=== PATIENT | male | born 1980 | race Caucasian/White ===

== ENCOUNTER 2022-10-09 11:30 | Emergency (ER) | payer OTHER, SELFPAY ==
--- NOTE | ~2022-10-09 | XR_ITS ---
EXAMINATION: XR CHEST CLINICAL INFORMATION: Reason for Exam rt side COMPARISON: Chest radiograph 02/20/2018 TECHNIQUE: 2 views of the chest FINDINGS: Clear lungs. No pneumothorax or pleural effusion. Normal cardiomediastinal silhouette. XR/XR chest 2V IMPRESSION: * Clear lungs.
--- NOTE | ~2022-10-09 | XR_ITS ---
EXAMINATION: XR SHOULDER, RIGHT CLINICAL INFORMATION: Reason for Exam trauma COMPARISON: None TECHNIQUE: Three views of the shoulder. FINDINGS: No acute fracture or dislocation. Joint spaces are maintained without significant degenerative change. Soft tissues are unremarkable. XR/XR shoulder RT min 2V IMPRESSION: * No acute osseous abnormality.
[2022-10-09 12:05] VITALS: BP 151/113; PULSE 102; RESP 18; TEMP 36.6; O2SAT 98; BMI 32.3
--- NOTE | 2022-10-09 12:05 | ED_ITS ---
HPI - Extremity Injury (Upper) General Chief Complaint: General Medical <Pastora Jansen NP - Last Filed: 10/09/22 12:07> Stated Complaint: r shoulder pain down to groin area <Pastora Jansen NP - Last Filed: 10/09/22 12:07> Time Seen by Provider: 10/09/22 12:30 <Pastora Jansen NP - Last Filed: 10/09/22 12:07> Source: patient <Josue Zacarias MD - Last Filed: 10/09/22 15:32> Mode of arrival: ambulatory <Josue Zacarias MD - Last Filed: 10/09/22 15:32> Limitations: no limitations <Josue Zacarias MD - Last Filed: 10/09/22 15:32> History of Present Illness HPI narrative: This is a 42 years old male presented to the emergency department with a chief complaint of right shoulder pain since yesterday, the pain is worse with the right shoulder movement <Josue Zacarias MD - Last Filed: 10/09/22 15:32> complaint: injury to: right and shoulder <Josue Zacarias MD - Last Filed: 10/09/22 15:32> Onset (ago): day(s) (1) <Josue Zacarias MD - Last Filed: 10/09/22 15:32> Other Extremity Injury: right: forearm <Josue Zacarias MD - Last Filed: 10/09/22 15:32> Other injuries: none <Josue Zacarias MD - Last Filed: 10/09/22 15:32> Severity: moderate <Josue Zacarias MD - Last Filed: 10/09/22 15:32> Relieving factors: none <Josue Zacarias MD - Last Filed: 10/09/22 15:32> Exacerbating factors: none <Josue Zacarias MD - Last Filed: 10/09/22 15:32> Related Data Home Medications: Previous Rx's Medication Instructions Recorded naproxen 500 mg tablet (Naprosyn) 500 mg PO BID PRN PAIN #20 tabs 10/09/22 <Pastora Jansen NP - Last Filed: 10/09/22 12:07> Allergies/Adverse Reactions: Allergies Allergy/AdvReac Type Severity Reaction Status Date / Time No Known Allergies Allergy Unverified 05/08/20 15:42 <Pastora Jansen NP - Last Filed: 10/09/22 12:07> Review of Systems Constitutional: Constitutional: Reports no additional constitutional complaints <Josue Zacarias MD - Last Filed: 10/09/22 15:32> ENT: Reports system reviewed and no additional complaints, except as documented <Josue Zacarias MD - Last Filed: 10/09/22 15:32> Respiratory: Respiratory: Reports no additional respiratory complaints <Josue Zacarias MD - Last Filed: 10/09/22 15:32> [facility] Past Medical History Attestation statement: The following information was validated with the patient. <Josue Zacarias MD - Last Filed: 10/09/22 15:32> [facility] Narrative: Opioid use disorder <Josue Zacarias MD - Last Filed: 10/09/22 15:32> Social History Social History: Social History Advance Directives: No Advance Directives Information Provided: No <Pastora Jansen NP - Last Filed: 10/09/22 12:07> Physical Exam Vital Signs: Vital Signs: Last Vital Signs Temp 98 F 10/09/22 12:05 Pulse 102 H 10/09/22 12:05 Resp 10/09/22 12:05 BP 151/113 H 10/09/22 12:05 Pulse Ox 98 10/09/22 12:05 O2 Del Method 10/09/22 12:05 BMI result Body Mass Index 32.3 <Pastora Jansen NP - Last Filed: 10/09/22 12:07> Vital Signs: Last Vital Signs Temp 98 F 10/09/22 12:05 Pulse 102 H 10/09/22 12:05 Resp 18 10/09/22 12:05 BP 151/113 H 10/09/22 12:05 Pulse Ox 98 10/09/22 12:05 O2 Del Method 10/09/22 12:05 BMI result Body Mass Index 32.3 <Josue Zacarias MD - Last Filed: 10/09/22 15:32> Const: General: cooperative <Josue Zacarias MD - Last Filed: 10/09/22 15:32> Nutritional Appearance: average body habitus <Josue Zacarias MD - Last Filed: 10/09/22 15:32> Orientation/consciousness: patient oriented x3 <Josue Zacarias MD - Last Filed: 10/09/22 15:32> Limitations: no limitations <Josue Zacarias MD - Last Filed: 10/09/22 15:32> HEENT: Head: Yes normal to inspection <Josue Zacarias MD - Last Filed: 10/09/22 15:32> General nose exam: Normal external nose present <Josue Zacarias MD - Last Filed: 10/09/22 15:32> Face and sinus: Yes normal facial exam <Josue Zacarias MD - Last Filed: 10/09/22 15:32> Mouth: Normal oral and palatal mucosa present <Josue Zacarias MD - Last Filed: 10/09/22 15:32> Throat: Yes posterior oropharynx normal <Josue Zacarias MD - Last Filed: 10/09/22 15:32> Neck: Neck: Yes normal visual inspection, Yes full ROM and Yes no lymphadenopathy <Josue Zacarias MD - Last Filed: 10/09/22 15:32> Chest: Chest palpation & inspection: normal inspection of the chest <Josue Zacarias MD - Last Filed: 10/09/22 15:32> Resp: Effort & Inspection: normal respiratory effort <MD Sahara Briscoe Last Filed: 10/09/22 15:32> Auscultation: clear to auscultation bilaterally <MD Sahara Briscoe Last Filed: 10/09/22 15:32> Cardio: Jugular venous distension: no JVD <Josue Zacarias MD - Last Filed: 10/09/22 15:32> Rate: regular rate <MD Sahara Briscoe Last Filed: 10/09/22 15:32> Rhythm: regular rhythm <MD Sahara Briscoe Last Filed: 10/09/22 15:32> GI: Inspection: Yes normal to inspection <Josue Zacarias MD - Last Filed: 10/09/22 15:32> Palpation (GI): Soft to palpation, nontender and no guarding <Josue Zacarias MD - Last Filed: 10/09/22 15:32> Auscultation: normal bowel sounds <Josue Zacarias MD - Last Filed: 10/09/22 15:32> Neuro: General: patient oriented x3 <Josue Zacarias MD - Last Filed: 10/09/22 15:32> Extrem: Other: There is tenderness in the right shoulder with limited range of motion <Josue Zacarias MD - Last Filed: 10/09/22 15:32> Course Course Course Narrative: This is a rapid medical exam. Deferred additional HPI, ROS, PE to primary provider. 42 yo male with no known medical problems here with complaints of right shoulder pain which radiates down right chest and right abdomen since yesterday. No cough, vomiting, fever, SOB, urinary symptoms. NO known injury or trauma. Will obtain labs, UA, EKG, covid testing. VSS <Pastora Jansen NP - Last Filed: 10/09/22 12:07> Reevaluation(s) Reevaluation #1: feels better ,w/u negative will d/c home <Josue Zacarias MD - Last Filed: 10/09/22 15:32> Time: 14:06 <Josue Zacarias MD - Last Filed: 10/09/22 15:32> Medications Administered Discontinued Medications Generic Name Dose Route Start Last Admin Trade Name Freq PRN Reason Stop Dose Admin Acetaminophen 975 mg 10/09/22 13:10 10/09/22 13:25 Acetaminophen 325 Mg Tablet PO 10/09/22 13:11 975 mg ONCE ONE Administration Ketorolac Tromethamine 60 mg 10/09/22 13:07 10/09/22 13:26 Ketorolac Tromethamine 60 Mg/2 Ml Vial IM 10/09/22 13:08 60 mg ONCE ONE Administration <Pastora Jansen NP - Last Filed: 10/09/22 12:07> Medications Administered Discontinued Medications Generic Name Dose Route Start Last Admin Trade Name Freq PRN Reason Stop Dose Admin Acetaminophen 975 mg 10/09/22 13:10 10/09/22 13:25 Acetaminophen 325 Mg Tablet PO 10/09/22 13:11 975 mg ONCE ONE Administration Ketorolac Tromethamine 60 mg 10/09/22 13:07 10/09/22 13:26 Ketorolac Tromethamine 60 Mg/2 Ml Vial IM 10/09/22 13:08 60 mg ONCE ONE Administration <Josue Zacarias MD - Last Filed: 10/09/22 15:32> Medical Decision Making Medical Decision Making [facility] Narrative: Patient presented with right shoulder pain, can reproduce the pain with the movement of the shoulder 2:06 PM reexamined feeels better,xr shoulder and cxr negative tropi EKGnl will d/c home <Josue Zacarias MD - Last Filed: 10/09/22 15:32> Differential Diagnosis Differential Diagnoses: The differential diagnosis associated with the presentation includes <Josue Zacarias MD - Last Filed: 10/09/22 15:32> Shoulder dislocation/ DJD of the shoulder/ ACS <Josue Zacarias MD - Last Filed: 10/09/22 15:32> Lab Data [facility] Lab Attestation statement: I reviewed the patient's lab results. <Josue Zacarias MD - Last Filed: 10/09/22 15:32> Result Diagrams: 10/09/22 12:53 10/09/22 12:53 <Pastora Jansen NP - Last Filed: 10/09/22 12:07> Labs: Lab Results 10/09/22 10/09/22 10/09/22 Range/Units 12:36 12:53 12:53 WBC 10.2 (4.8-10.8) X10*3/uL RBC 4.76 (4.60-5.80) X10*6/uL Hgb 16.0 (14.0-18.0) g/dl Hct 45.5 (42.0-52.0) % MCV 95.6 (80.0-98.0) fL MCH 33.6 H (27.0-33.0) pg MCHC 35.2 (31.0-36.0) g/dl RDW 14.0 (11.0-16.0) % Plt Count 86 L (160-400) X10*3/uL MPV 11.5 (9.4-12.4) fL Immature Gran % (Auto) 0.3 (0.0-0.4) % Neut % (Auto) 73.7 H (45-73) % Lymph % (Auto) 17.8 L (20-40) % Summers % (Auto) 7.4 (2-11) % Eos % (Auto) 0.4 (0-4) % Baso % (Auto) 0.4 (0-2) % Lymph # (Auto) 1.8 (1.2-4.9) X10*3/uL Summers # (Auto) 0.8 (0.1-1.2) X10*3/uL Eos # (Auto) 0.0 (0.0-0.4) X10*3/uL Baso # (Auto) 0.0 (0.0-0.2) X10*3/uL Abs Immat Gran (auto) 0.03 (0.00-0.03) X10*3/uL Absolute Neuts (auto) 7.5 (2.0-8.3) x10*3/uL Absolute Nucleated RBC 0.000 (0.0-0.012) X10*3/uL Nucleated RBC % (auto) 0.0 (0.0-0.2) /100WBC Sodium 139 (135-145) mmol/L Potassium 4.4 (3.3-5.1) mmol/L Chloride 105 (96-108) mmol/L Carbon Dioxide 23 (22-29) mmol/L Anion Gap 15 (12-20) BUN 10 (9-16) mg/dL Creatinine 0.86 (0.5-1.4) mg/dL Estim Creat Clear Calc 115.6 Estimated GFR > 60 Random Glucose 130 H (60-115) mg/dL Calcium 9.3 (8.4-10.2) mg/dL Magnesium 1.9 (1.6-2.6) mg/dL Total Bilirubin 2.3 H (0.0-1.0) mg/dL Direct Bilirubin 1.0 H (0.0-0.5) mg/dL AST 110 H (5-37) U/L ALT 75 H (0-40) U/L Alkaline Phosphatase 159 H (39-117) U/L Troponin I High Sens (<3.5-35.0) ng/L Total Protein 8.1 H (6.5-8.0) g/dL Albumin 3.8 (3.5-5.0) g/dL COVID-19 (NEYDA) Negative (Negative) COVID-19 Clin Com See Note 10/09/22 Range/Units 12:53 WBC (4.8-10.8) X10*3/uL RBC (4.60-5.80) X10*6/uL Hgb (14.0-18.0) g/dl Hct (42.0-52.0) % MCV (80.0-98.0) fL MCH (27.0-33.0) pg MCHC (31.0-36.0) g/dl RDW (11.0-16.0) % Plt Count (160-400) X10*3/uL MPV (9.4-12.4) fL Immature Gran % (Auto) (0.0-0.4) % Neut % (Auto) (45-73) % Lymph % (Auto) (20-40) % Summers % (Auto) (2-11) % Eos % (Auto) (0-4) % Baso % (Auto) (0-2) % Lymph # (Auto) (1.2-4.9) X10*3/uL Summers # (Auto) (0.1-1.2) X10*3/uL Eos # (Auto) (0.0-0.4) X10*3/uL Baso # (Auto) (0.0-0.2) X10*3/uL Abs Immat Gran (auto) (0.00-0.03) X10*3/uL Absolute Neuts (auto) (2.0-8.3) x10*3/uL Absolute Nucleated RBC (0.0-0.012) X10*3/uL Nucleated RBC % (auto) (0.0-0.2) /100WBC Sodium (135-145) mmol/L Potassium (3.3-5.1) mmol/L Chloride (96-108) mmol/L Carbon Dioxide (22-29) mmol/L Anion Gap (12-20) BUN (9-16) mg/dL Creatinine (0.5-1.4) mg/dL Estim Creat Clear Calc Estimated GFR Random Glucose (60-115) mg/dL Calcium (8.4-10.2) mg/dL Magnesium (1.6-2.6) mg/dL Total Bilirubin (0.0-1.0) mg/dL Direct Bilirubin (0.0-0.5) mg/dL AST (5-37) U/L ALT (0-40) U/L Alkaline Phosphatase (39-117) U/L Troponin I High Sens < 3.5 (<3.5-35.0) ng/L Total Protein (6.5-8.0) g/dL Albumin (3.5-5.0) g/dL COVID-19 (NEYDA) (Negative) COVID-19 Clin Com <Pastora Jansen, SHAFT TENDER - Last Filed: 10/09/22 12:07> Lab Results 10/09/22 10/09/22 10/09/22 Range/Units 12:36 12:53 12:53 WBC 10.2 (4.8-10.8) X10*3/uL RBC 4.76 (4.60-5.80) X10*6/uL Hgb 16.0 (14.0-18.0) g/dl Hct 45.5 (42.0-52.0) % MCV 95.6 (80.0-98.0) fL MCH 33.6 H (27.0-33.0) pg MCHC 35.2 (31.0-36.0) g/dl RDW 14.0 (11.0-16.0) % Plt Count 86 L (160-400) X10*3/uL MPV 11.5 (9.4-12.4) fL Immature Gran % (Auto) 0.3 (0.0-0.4) % Neut % (Auto) 73.7 H (45-73) % Lymph % (Auto) 17.8 L (20-40) % Summers % (Auto) 7.4 (2-11) % Eos % (Auto) 0.4 (0-4) % Baso % (Auto) 0.4 (0-2) % Lymph # (Auto) 1.8 (1.2-4.9) X10*3/uL Summers # (Auto) 0.8 (0.1-1.2) X10*3/uL Eos # (Auto) 0.0 (0.0-0.4) X10*3/uL Baso # (Auto) 0.0 (0.0-0.2) X10*3/uL Abs Immat Gran (auto) 0.03 (0.00-0.03) X10*3/uL Absolute Neuts (auto) 7.5 (2.0-8.3) x10*3/uL Absolute Nucleated RBC 0.000 (0.0-0.012) X10*3/uL Nucleated RBC % (auto) 0.0 (0.0-0.2) /100WBC Sodium 139 (135-145) mmol/L Potassium 4.4 (3.3-5.1) mmol/L Chloride 105 (96-108) mmol/L Carbon Dioxide 23 (22-29) mmol/L Anion Gap 15 (12-20) BUN 10 (9-16) mg/dL Creatinine 0.86 (0.5-1.4) mg/dL Estim Creat Clear Calc 115.6 Estimated GFR > 60 Random Glucose 130 H (60-115) mg/dL Calcium 9.3 (8.4-10.2) mg/dL Magnesium 1.9 (1.6-2.6) mg/dL Total Bilirubin 2.3 H (0.0-1.0) mg/dL Direct Bilirubin 1.0 H (0.0-0.5) mg/dL AST 110 H (5-37) U/L ALT 75 H (0-40) U/L Alkaline Phosphatase 159 H (39-117) U/L Troponin I High Sens (<3.5-35.0) ng/L Total Protein 8.1 H (6.5-8.0) g/dL Albumin 3.8 (3.5-5.0) g/dL COVID-19 (NEYDA) Negative (Negative) COVID-19 Clin Com See Note 10/09/22 Range/Units 12:53 WBC (4.8-10.8) X10*3/uL RBC (4.60-5.80) X10*6/uL Hgb (14.0-18.0) g/dl Hct (42.0-52.0) % MCV (80.0-98.0) fL MCH (27.0-33.0) pg MCHC (31.0-36.0) g/dl RDW (11.0-16.0) % Plt Count (160-400) X10*3/uL MPV (9.4-12.4) fL Immature Gran % (Auto) (0.0-0.4) % Neut % (Auto) (45-73) % Lymph % (Auto) (20-40) % Summers % (Auto) (2-11) % Eos % (Auto) (0-4) % Baso % (Auto) (0-2) % Lymph # (Auto) (1.2-4.9) X10*3/uL Summers # (Auto) (0.1-1.2) X10*3/uL Eos # (Auto) (0.0-0.4) X10*3/uL Baso # (Auto) (0.0-0.2) X10*3/uL Abs Immat Gran (auto) (0.00-0.03) X10*3/uL Absolute Neuts (auto) (2.0-8.3) x10*3/uL Absolute Nucleated RBC (0.0-0.012) X10*3/uL Nucleated RBC % (auto) (0.0-0.2) /100WBC Sodium (135-145) mmol/L Potassium (3.3-5.1) mmol/L Chloride (96-108) mmol/L Carbon Dioxide (22-29) mmol/L Anion Gap (12-20) BUN (9-16) mg/dL Creatinine (0.5-1.4) mg/dL Estim Creat Clear Calc Estimated GFR Random Glucose (60-115) mg/dL Calcium (8.4-10.2) mg/dL Magnesium (1.6-2.6) mg/dL Total Bilirubin (0.0-1.0) mg/dL Direct Bilirubin (0.0-0.5) mg/dL AST (5-37) U/L ALT (0-40) U/L Alkaline Phosphatase (39-117) U/L Troponin I High Sens < 3.5 (<3.5-35.0) ng/L Total Protein (6.5-8.0) g/dL Albumin (3.5-5.0) g/dL COVID-19 (NEYDA) (Negative) COVID-19 Clin Com <Josue Zacarias MD - Last Filed: 10/09/22 15:32> Independent Interpretation I performed an independent interpretation of an: EKG (Normal sinus rhythm no ST-T changes) <Josue Zacarias MD - Last Filed: 10/09/22 15:32> Radiology Impression Discussion of test interpretation with radiology: I have reviewed the radiologist's reading. <Josue Zacarias MD - Last Filed: 10/09/22 15:32> Radiologist Impression: negative <Josue Zacarias MD - Last Filed: 10/09/22 15:32> Discharge Plan Discharge Clinical Impression: Shoulder pain, right <Pastora Jansen NP - Last Filed: 10/09/22 12:07> Patient Disposition: Home, Self-Care <Pastora Jansen NP - Last Filed: 10/09/22 12:07> Instructions: Shoulder Pain (ED) <Pastora Jansen NP - Last Filed: 10/09/22 12:07> Additional Instructions: Follow-up with the orthopedist, take anti-inflammatory as directed,we called prescription for you [facility] <Pastora Jansen NP - Last Filed: 10/09/22 12:07> Prescriptions: New naproxen [Naprosyn] 500 mg tablet 500 mg PO BID PRN (Reason: PAIN) Qty: 20 0RF <Pastora Jansen NP - Last Filed: 10/09/22 12:07> Referrals: Philippe Da Silva MD [Physician] - 10/12/22 <Pastora Jansen NP - Last Filed: 10/09/22 12:07> Interventions: ED Discharge Assessment Last Done: 10/09/22 15:05 <Pastora Jansen NP - Last Filed: 10/09/22 12:07> Discharge Date/Time: 10/09/22 15:07 <Pastora Jansen NP - Last Filed: 10/09/22 12:07>
--- NOTE | 2022-10-09 12:07 | ECG_ITS ---
Test Reason : SOB Blood Pressure : / mmHG Vent. Rate : 087 BPM Atrial Rate : 087 BPM P-R Int : 136 ms QRS Dur : 080 ms QT Int : 370 ms P-R-T Axes : 052 056 031 degrees QTc Int : 445 ms Normal sinus rhythm Normal ECG When compared with ECG of 26-AUG-2017 09:15, QT has lengthened Referred By: Pastora Jansen Electronically Signed By:Viraj Aguilar
[2022-10-09 12:59] LABS: COVID-19 Test Negative (Negative); IDNOW Serial# 08D9AD1C
[2022-10-09 13:00] LABS: Mean Corpuscular Volume 95.6 fL (80.0-98.0); PLT CLUMP 1; SCAN SMEAR FLAG 1
[2022-10-09 13:02] LABS: Basophils Percent Auto 0.4 % (0-2); Eosinophils Percent Auto 0.4 % (0-4); Hematocrit 45.5 % (42.0-52.0); Imm Gran Abs Auto 0.03 X10*3/uL (0.00-0.03); Imm Gran Pct Auto 0.3 % (0.0-0.4); Lymphocytes Absolute Auto 1.8 X10*3/uL (1.2-4.9); Lymphocytes Percent Auto 17.8 % (20-40); Mean Corpuscular HGB Conc 35.2 g/dl (31.0-36.0); Mean Corpuscular Hemoglobin 33.6 pg (27.0-33.0); Mean Platelet Volume 11.5 fL (9.4-12.4); Monocytes Absolute Auto 0.8 X10*3/uL (0.1-1.2); Monocytes Percent Auto 7.4 % (2-11); Neutrophils Absolute Auto 7.5 x10*3/uL (2.0-8.3); Neutrophils Percent Auto 73.7 % (45-73); Red Blood Count 4.76 X10*6/uL (4.60-5.80)
[2022-10-09 13:18] LABS: White Blood Count 10.2 X10*3/uL (4.8-10.8)
[2022-10-09 13:20] LABS: MANUAL DIFF FLAG NO
[2022-10-09 13:22] LABS: Platelet Count 86 X10*3/uL (160-400)
[2022-10-09 13:24] LABS: Alanine Aminotransferase 75 U/L (0-40); Albumin Level 3.8 g/dL (3.5-5.0); Alkaline Phosphatase 159 U/L (39-117); Anion Gap 15 (12-20); Aspartate Amino Transferase 110 U/L (5-37); Bilirubin Total 2.3 mg/dL (0.0-1.0); Blood Urea Nitrogen 10 mg/dL (9-16); Calcium 9.3 mg/dL (8.4-10.2); Carbon Dioxide 23 mmol/L (22-29); Chloride 105 mmol/L (96-108); Creatinine Clr Calc Pharmacy 115.6; Estimated Glomerular Filt Rate > 60; Glucose Random 130 mg/dL (60-115); Magnesium 1.9 mg/dL (1.6-2.6); Potassium 4.4 mmol/L (3.3-5.1); Sodium 139 mmol/L (135-145); Total Protein 8.1 g/dL (6.5-8.0)
[2022-10-09] MEDS: Acetaminophen 325 MG TABLET 975 MG PO (13:25)
[2022-10-09] MEDS: Ketorolac Tromethamine 60 MG/2 ML VIAL IM (13:26)
[2022-10-09 13:34] LABS: Troponin-I High Sensitivity < 3.5 ng/L (<3.5-35.0)
== END 2022-10-09 15:07 | disposition home or self-care (01) ==
PROVIDERS: Nurse Practitioner Family; Emergency Provider Emergency Medicine
DX: M25.511 Pain in right shoulder (principal); Z20.822 Contact with and (suspected) exposure to COVID-19
CPT/HCPCS: 36415; 71046; 73030; 80048; 80076; 83735; 84484; 85025; 87635; 93005; 96372; 99283; 99284; J1885